=== PATIENT | male | born 1970 | race Hispanic/Latino ===

== ENCOUNTER 2017-03-29 15:58 | Emergency (ER) | payer OTHER ==
[2017-03-29 16:07] VITALS: BP 146/95
--- NOTE | 2017-03-29 16:14 | Emergency Department Report ---
Chief Complaint: Wound/Laceration Stated Complaint: LACERATION LT SIDE FACE Time Seen by Provider: 03/29/17 16:12 - HPI History of Present Illness: patient is a 46 y/o male who presents due to left facial laceration after falling. - ROS Review of Systems: facial laceration. - Exam Vital Signs: Vital Signs 03/29/17 16:04 Temperature 98.3 F Pulse Rate 80 Respiratory 18 Rate Blood Pressure 146/95 O2 Sat by Pulse 100 Oximetry Physical Exam: 4 cm left linear facial laceration, near the left lips MSE screening note: Focused history and physical exam performed. Due to findings the following was ordered: ED Disposition for MSE Condition: Stable
[2017-03-29] MEDS ORDERED: BOOSTRIX IM ONE (19:18)
--- NOTE | 2017-03-29 19:42 | Emergency Department Report ---
- General Chief Complaint: Wound/Laceration Stated Complaint: LACERATION LT SIDE FACE Time Seen by Provider: 03/29/17 19:08 Source: patient Mode of arrival: Ambulatory Limitations: No Limitations - History of Present Illness Initial Comments: This is a 46-year-old male nontoxic, well nourished in appearance, no acute signs of distress presents to the ED complaining of laceration of the left cheek. Patient stated he fell down this morning at the corner of the side walk and developed a laceration and pain to the region. Patient denies any tramus. Denies any chest pain, shortness of breathe, fever, chills, headache, n/v, stiff neck, blurry vision, abd pain, numbness or tingling. Patient denies any allergies or PMH. Denies head trauma. Patient stated has a old fracture in his mandible region of the right side that occurred in his teens. Denies any new trauma to the right mandible region. -: This morning Location: face 1 - [address]: outdoors Patient Tetanus UTD: Yes (2016) Context: fall Associated Symptoms: pain. denies: loss of feeling/numbness, suspect foreign body present, unable to move injured part, weakness followed by dizziness, nausea/vomiting, fever - Related Data Previous Rx's Medication Instructions Recorded Last Taken Type Ibuprofen [Motrin 600 MG tab] 600 mg PO Q8H PRN #30 tablet 03/29/17 Unknown Rx Sulfamethoxazole/Trimethoprim 1 each PO BID #20 tablet 03/29/17 Unknown Rx [Bactrim Ds Tablet] Allergies Allergy/AdvReac Type Severity Reaction Status Date / Time No Known Allergies Allergy Unverified 03/29/17 16:06 ED Review of Systems ROS: Stated complaint: LACERATION LT SIDE FACE Other details as noted in HPI Constitutional: denies: chills, fever Eyes: denies: eye pain, eye discharge, vision change ENT: denies: ear pain, throat pain Respiratory: denies: cough, shortness of breath, wheezing Cardiovascular: denies: chest pain, palpitations Endocrine: no symptoms reported Gastrointestinal: denies: abdominal pain, nausea, diarrhea Genitourinary: denies: urgency, dysuria Musculoskeletal: denies: back pain, joint swelling, arthralgia Skin: denies: rash, lesions Neurological: denies: headache, weakness, paresthesias Psychiatric: denies: anxiety, depression Hematological/Lymphatic: denies: easy bleeding, easy bruising ED Past Medical Hx - Past Medical History Previous Medical History?: No - Surgical History Past Surgical History?: No - Social History Smoking Status: Never Smoker Substance Use Type: None - Medications Home Medications: Home Medications Medication Instructions Recorded Confirmed Last Taken Type Ibuprofen [Motrin 600 MG tab] 600 mg PO Q8H PRN #30 tablet 03/29/17 Unknown Rx Sulfamethoxazole/Trimethoprim 1 each PO BID #20 tablet 03/29/17 Unknown Rx [Bactrim Ds Tablet] ED Physical Exam - General Limitations: No Limitations General appearance: alert, in no apparent distress - Head Head exam: Present: atraumatic, normocephalic, normal inspection - Eye Eye exam: Present: normal appearance, PERRL, EOMI. Absent: scleral icterus, conjunctival injection, nystagmus, periorbital swelling, periorbital tenderness Pupils: Present: normal accommodation - ENT ENT exam: Present: normal exam, normal orophraynx, mucous membranes moist, TM's normal bilaterally, normal external ear exam - Neck Neck exam: Present: normal inspection, full ROM. Absent: tenderness, meningismus, lymphadenopathy, thyromegaly - Respiratory Respiratory exam: Present: normal lung sounds bilaterally. Absent: respiratory distress, wheezes, rales, rhonchi, stridor, chest wall tenderness, accessory muscle use, decreased breath sounds, prolonged expiratory - Cardiovascular Cardiovascular Exam: Present: regular rate, normal rhythm, normal heart sounds. Absent: bradycardia, tachycardia, irregular rhythm, systolic murmur, diastolic murmur, rubs, gallop - GI/Abdominal GI/Abdominal exam: Present: soft, normal bowel sounds. Absent: distended, tenderness, guarding, rebound, rigid, diminished bowel sounds - Rectal Rectal exam: Present: deferred - Extremities Exam Extremities exam: Present: normal inspection, full ROM, normal capillary refill. Absent: tenderness, pedal edema, joint swelling, calf tenderness - Back Exam Back exam: Present: normal inspection, full ROM. Absent: tenderness, CVA tenderness (R), CVA tenderness (L), muscle spasm, paraspinal tenderness, vertebral tenderness, rash noted - Neurological Exam Neurological exam: Present: alert, oriented X3, CN II-XII intact, normal gait, reflexes normal - Psychiatric Psychiatric exam: Present: normal affect, normal mood - Skin Skin exam: Present: warm, dry, intact, normal color. Absent: rash - Other Other exam information: 1 cm superficial laceration. no swelling or abscess notd. Bleeding under control. No ecchymosis present. ED Course Vital Signs 03/29/17 16:04 Temperature 98.3 F Pulse Rate 80 Respiratory 18 Rate Blood Pressure 146/95 O2 Sat by Pulse 100 Oximetry - Reevaluation(s) Reevaluation #1: 03/29/17 19:42 Patient is speaking in full sentences with no signs of distress noted. - Laceration /Wound Repair Left Cheek Wound Location: face (left lower mandible region) Wound Length (cm): 1 Wound's Depth, Shape: superficial Wound Explored: clean Irrigated w/ Saline (ccs): 40 Betadine Prep?: Yes Wound Repaired With: Dermabond Layer Closure?: No Sterile Dressing Applied?: Yes Progress: Under sterile field, I used Betadine to clean the area. I then used 40 mL of normal saline to flush the area. I then applied Dermabond to the laceration. I then applied a sterile 4 x 4 with tape. Minimal bleeding noted but is under control. Patient tolerated procedure well with no signs of distress. ED Medical Decision Making - Medical Decision Making 46-year-old male that presents with a 1 cm superficial laceration left mandible region. Patient was examined by me patient is stable. CT of facial bone has been obtained and definitive radiologist with negative findings of any fracture or abnormalities. Patient was notified of CT results with noted by the patient. Patient stated tetanus up-to-date this year. Laceration has been repaired successfully with Dermabond. Patient was educated instructed on Dermabond care. Patient received Bactrim at discharge. Patient was instructed to follow- up with a primary care doctor in 3-5 days or if symptoms worsen and continue return to emergency room as soon as possible possible. Patient is hemodynamically stable with stable vital signs. Patient states he is feeling better. At time time of discharge, the patient does not seem toxic or ill in appearance. No acute signs of distress noted. Patient agrees to discharge treatment plan of care. No further questions noted by the patient. Critical care attestation.: If time is entered above; I have spent that time in minutes in the direct care of this critically ill patient, excluding procedure time. ED Disposition Clinical Impression: Laceration Disposition: DC-01 TO HOME OR SELFCARE Is pt being admited?: No Does the pt Need Aspirin: No Condition: Stable Instructions: Laceration (ED), Skin Adhesive Care (ED), Sulfamethoxazole/ Trimethoprim (By mouth), Ibuprofen (By mouth) Additional Instructions: Follow-up with a primary care doctor in 3-5 days or if symptoms worsen and continue return to emergency room as soon as possible possible. Prescriptions: Ibuprofen [Motrin 600 MG tab] 600 mg PO Q8H PRN #30 tablet PRN Reason: Pain Sulfamethoxazole/Trimethoprim [Bactrim Ds Tablet] 1 each PO BID #20 tablet Referrals: PRIMARY CAREMD [Primary Care Provider] - 3-5 Days DION YOUNGBLOOD MD [Staff Physician] - 3-5 Days [facility] [Outside] - 3-5 Days [facility] [Outside] - 3-5 Days Forms: Work/School Release Form(ED)
--- NOTE | 2017-03-29 20:38 | Cat Scan Report ---
FINAL REPORT PROCEDURE: CT FACIAL BONES WO CON TECHNIQUE: Computerized tomography of the facial bones and soft tissues with axial and coronal sections performed from the cranial aspect of the frontal sinuses to the caudal portion of the mandible without contrast material. HISTORY: facial pain s/p fall COMPARISON: No prior studies are available for comparison. FINDINGS: Bones: No significant abnormality. Paranasal sinuses: Clear. Soft tissues: No significant abnormality. Other: None. IMPRESSION: Normal Examination
== END 2017-03-29 21:15 | disposition home or self-care (01) ==
LOC: ED 15:58
DX: S01.412A Laceration without foreign body of left cheek and temporomandibular area, initial encounter (principal); W19.XXXA Unspecified fall, initial encounter; Y93.9 Activity, unspecified; Y99.9 Unspecified external cause status; Y92.89 Other specified places as the place of occurrence of the external cause
CPT/HCPCS: 70486; 90715